=== PATIENT | female | born 1970 | race Caucasian/White ===

== ENCOUNTER 2022-07-31 12:23 | Emergency (ER) | payer SELFPAY ==
[~2022-07-31] VITALS: Ht 157 cm; Wt 78.0 kg
[2022-07-31 12:51] VITALS: BP 220/134
--- NOTE | 2022-07-31 13:01 | NUR ---
Pt ambulated to bed 04.
--- NOTE | 2022-07-31 13:51 | NUR ---
PATIENT PRESENTS TO ED WITH C/O HTN. PT STATES she cannot recall her last visit to PCP, currently not taking any medications. DENIES N/V/D; SKIN IS PINK/WARM/DRY; AAOX4 WITH EVEN AND STEADY GAIT; LUNGS CLEAR BL; HR EVEN AND REGULAR; PT DENIES ANY FEVER, CP, SOB, OR COUGH AT THIS TIME; PATIENT STATES PAIN OF 0/10 AT THIS TIME; VSS; PATIENT POSITIONED FOR COMFORT; HOB ELEVATED; BEDRAILS UP X2; BED DOWN. ER MD MADE AWARE OF PT STATUS.
--- NOTE | 2022-07-31 13:54 | NUR ---
EKG being performed.
[2022-07-31 13:56] LABS: BASOPHILS # (AUTO) 0.1 K/uL (0.00-0.22); BASOPHILS % (AUTO) 0.7 % (0.0-2.0); EOSINOPHILS # (AUTO) 0.3 K/uL (0-0.4); EOSINOPHILS % (AUTO) 3.7 % (0.0-4.0); HEMATOCRIT 43.5 % (36-48); HEMOGLOBIN 14.8 g/dL (12.0-16.0); LYMPHOCYTES # (AUTO) 2.3 K/uL (2.5-16.5); LYMPHOCYTES % (AUTO) 28.9 % (20.5-51.1); MEAN CORPUSCULAR HEMOGLOBIN 30 pg (27-31); MEAN CORPUSCULAR HGB CONC 34 g/dL (33-37); MEAN CORPUSCULAR VOLUME 87.5 fL (80-94); MONOCYTES # (AUTO) 0.4 K/uL (0.8-1.0); MONOCYTES % (AUTO) 5.4 % (1.7-9.3); NEUTROPHILS % (AUTO) 61.3 % (42.2-75.2); PLATELET COUNT (AUTO) 185 K/uL (140-450); RED BLOOD CELL COUNT(AUTO) 4.97 MIL/uL (4.20-5.40); RED CELL DISTRIBUTION WIDTH 13.3 % (11.6-13.7); WHITE BLOOD COUNT (AUTO) 8.1 K/uL (4.8-10.8)
[2022-07-31 14:14] LABS: ANION GAP 12.7 (8-16); CARBON DIOXIDE 28.7 mmol/L (21-32); CHLORIDE 100 mmol/L (98-107); CREATININE 0.6 mg/dL (0.6-1.3); GFR ARICAN-AMERICAN 136 mL/min (>90); GLUCOSE 242 mg/dL (74-106); POTASSIUM 3.4 mmol/L (3.5-5.1); SODIUM SERUM 138 mmol/L (136-145); UREA NITROGEN, BLOOD 12 mg/dL (7-18)
--- NOTE | 2022-07-31 14:24 | NUR ---
Placed an ginger wrap on pt's left ankle. CMS intact before and after placement. Crutches adjusted for pt's height, he was able to safely demonstrate proper use.
[2022-07-31 14:27] LABS: ALBUMIN 3.8 g/dL (3.4-5.0); ASPARTATE AMINOTRANSFERASE 5 U/L (15-37); LIPASE 83 U/L (73-393); TOTAL BILIRUBIN 0.3 mg/dL (0.0-1.0)
[2022-07-31] MEDS ORDERED: hydrALAZINE 20 MG/ML VIAL IVP ONE (15:05)
[2022-07-31 16:57] VITALS: BP 104/61
--- NOTE | 2022-07-31 17:08 | NUR ---
Patient discharged with v/s stable. Written and verbal after care instructions given and explained. Patient alert, oriented and verbalized understanding of instructions. Ambulatory with steady gait. All questions addressed prior to discharge. ID band removed. Patient advised to follow up with PMD. Rx not given. Patient educated on indication of medication including possible reaction and side effects. Opportunity to ask questions provided and answered.
== END 2022-07-31 17:08 | disposition home or self-care (01) ==
LOC: MED 12:23
DX: I10 Essential (primary) hypertension (principal)
CPT/HCPCS: 36415; 71045; 80053; 83690; 84484; 85025; 93005; 96374; 99285; J0360; Q0092